=== PATIENT | female | born 1955 | race Hispanic/Latino ===

== ENCOUNTER 2020-09-03 10:37 | Outpatient (CLI) | payer MEDICARE | END 2020-09-03 10:38 | disposition home or self-care (01) | LOC: CSHMAMMO 10:37 | PROVIDERS: ATTEND Internal Medicine | DX: Z78.0 Asymptomatic menopausal state (principal); M85.80 Other specified disorders of bone density and structure, unspecified site | CPT/HCPCS: 77080 ==

== ENCOUNTER 2021-12-10 12:23 | Outpatient (CLI) | payer MEDICAID, MEDICARE | END 2021-12-10 12:24 | disposition home or self-care (01) | LOC: CSHRAD 12:23 | PROVIDERS: ATTEND Nurse Practitioner Adult Health | DX: M25.551 Pain in right hip (principal); M16.11 Unilateral primary osteoarthritis, right hip ==